=== PATIENT | male | born 1940 | race Caucasian/White ===

== ENCOUNTER → 2016-09-22 | Outpatient (CLI) | payer OTHER, MEDICARE ==
[~2016-09-22] MED LIST: ASPIRIN325 PO; CARBIDOPA-LEVO1 EAC9 PO; FISH OIL 1,0001 EAC5 PO; HYDROCODONE-AP1 EAC6 PO; LEVAQUIN 750 M750 MG PO; METOPROLOL SUC100 MG PO; PRAVACHOL40 MG PO; RANITIDINE 150150 M1 PO; REQUIP2 MG PO; SIMVASTATIN80 MG; VENTOLIN HFA 1818 GM INH; VIAGRA50 MG PO; VITAMIN E100 UNI2; carbidopa
== END ==
LOC: RAD 13:09
DX: J18.9 Pneumonia, unspecified organism (principal)